=== PATIENT | male | born 1970 | race Caucasian/White ===

== ENCOUNTER 2024-03-11 09:56 | Outpatient (CLI) | payer OTHER | END 2024-03-11 23:59 | disposition home or self-care (01) | LOC: VAS 09:56 | PROVIDERS: ATTEND Family Medicine | DX: S80.11XA Contusion of right lower leg, initial encounter (principal); R22.9 Localized swelling, mass and lump, unspecified; I82.409 Acute embolism and thrombosis of unspecified deep veins of unspecified lower extremity; X58.XXXA Exposure to other specified factors, initial encounter; Y93.89 Activity, other specified; Y92.89 Other specified places as the place of occurrence of the external cause; Y99.8 Other external cause status | CPT/HCPCS: 93971 ==

== ENCOUNTER 2024-09-06 11:20 | Outpatient (CLI) | payer OTHER ==
--- NOTE | 2024-09-06 13:45 | RADIOLOGY REPORT ---
CLINICAL HISTORY: PAIN IN RIGHT KNEE COMPARISON: None TECHNIQUE: Multisequence multiplanar MRI images of the right knee were obtained without contrast. FINDINGS: Cruciate ligaments: ACL and PCL are intact and otherwise unremarkable. Extensor mechanism: Quadriceps mechanism and patellar tendon are intact. Mild edema and trace fluid i n the prepatellar and superficial infrapatellar bursae. Collateral ligaments: Medial and lateral collateral ligaments are intact and otherwise unremarkable. Menisci: Intrasubstance signal in the posterior horn and body of the medial meniscus without visualiz ed extension to the articular surface to suggest tear, likely intrasubstance degeneration. Lateral me niscus is intact. Lobulated cystic structure adjacent to the anterior horn of the lateral meniscus, l ikely ganglion cyst, measuring up to 1.9 cm in greatest dimension. Cartilage: No focal chondral defect or significant chondromalacia. Bones: No acute fracture or focal marrow contusion Joint fluid: No significant joint effusion. No synovitis or loose bodies. Other: No other significant findings. IMPRESSION: 1. Intrasubstance degeneration in the posterior horn and body of the medial meniscus without definite extension to the articular surface to suggest tear, likely intrasubstance degeneration. 2. Lobulated cystic structure along the anterior aspect of the anterior horn of the lateral meniscus, likely ganglion cyst, with no adjacent tear identified in the lateral meniscus. 3. Additional findings as described above.
--- NOTE | 2024-09-06 20:07 | RADIOLOGY REPORT ---
Procedure: MR MRI LOWER EXTREMITY RIGHT 09/06/2024 12:12 PM INDICATION: PAIN IN UNSPECIFIED LOWER LEG COMPARISON: None TECHNIQUE: MRI was performed utilizing multiple appropriate imaging planes and pulse sequences. FINDINGS: Moderate muscle edema is seen in the inferior soleus muscle more prominent laterally corresponding to the marker placed over the calf. No discrete fluid collection seen. No tendon tear or retraction. T he osseous structures are intact with no evidence of stress reaction or stress fracture. No subcutane ous edema or skin thickening. IMPRESSION: 1. Findings compatible with soleus muscle strain. The Achilles tendon is intact. No hematoma is ident ified. No acute osseous abnormality.
== END 2024-09-06 23:59 | disposition home or self-care (01) ==
LOC: MRI02 11:20
PROVIDERS: ATTEND Family Medicine
DX: M17.11 Unilateral primary osteoarthritis, right knee (principal); M25.561 Pain in right knee; M79.669 Pain in unspecified lower leg; R60.0 Localized edema
CPT/HCPCS: 73718; 73721